=== PATIENT | female | born 1985 | race Caucasian/White ===

== ENCOUNTER 2016-12-14 17:18 | Inpatient (IN) | payer OTHER ==
[~2016-12-14] VITALS: Ht 162.6 cm; Wt 87.1 kg
[~2016-12-14 17:18] MED LIST: ESOM40CA41 PO; LEVO1TAB20 PO; Methylergonovine 0.2 mg/mL Inj ONE
[2016-12-14] MEDS ORDERED: Lactated Ringer's 1,000 ML IV PRN (19:02)
[2016-12-14] MEDS ORDERED: Oxytocin 30 Units/500 mL LR 30 UNITS in IV Premix 1 EACH IV PRN (19:05)
[2016-12-14] MEDS ORDERED: Sodium Chloride LOK Flush 10 mL Syringe IVFLUSH PRN (19:05)
[2016-12-14] MEDS ORDERED: Oxytocin 10 Unit/mL Inj IM PRN (19:05)
[2016-12-14] MEDS ORDERED: Methylergonovine 0.2 mg/mL Inj IM PRN (19:05)
[2016-12-14] MEDS ORDERED: Carboprost 250 mCg/mL Inj IM PRN (19:05)
[2016-12-14] MEDS ORDERED: Hemorrhage Kit, Post Partum XX ONE (19:05)
[2016-12-14] MEDS ORDERED: Oxytocin 30 Units/500 mL LR Premix IV ONE (19:11)
[2016-12-14] MEDS ORDERED: Lactated Ringer's 500 ML IV ONE (19:17)
[2016-12-14] MEDS: Lactated Ringer's 1,000 ML IV SCH (19:17)
[2016-12-14] MEDS ORDERED: EPHEDrine Sulfate 50 mg/mL Inj IVPUSH PRN (19:20)
[2016-12-14] MEDS ORDERED: fentaNYL 2 mCg/mL-Bupiv 0.125% 100 ML EPIDURAL SCH (19:20)
[2016-12-14] MEDS ORDERED: Atropine 1 mg/10 mL (Code) Syringe IVPUSH PRN (19:20)
[2016-12-14 19:53] LABS: Mean Corpuscular Hemoglobin 30.6 pg (27.0-35.0); Mean Corpuscular Volume 89.4 fL (81-100)
--- NOTE | 2016-12-14 20:37 | PCM.HPANE ---
Patient Data Surgeon Admitting Provider:Patel Marks MD Attending Provider:Patel Marks MD Primary Care Physician:Nopcp Other Provider: Reason for Visit Term Labor Check TERM LABOR CHECK Ht/WT & BMI Body Mass Index Allergies Coded Allergies: No Known Allergies (Verified Allergy, Unknown, 11/24/14) Past Anesthesia History Anesthesia History: Denies:: Abnormal Airway, Anesthesia Reactions, Difficult Intubation, Fam Anesthesia Reaction, Fam Malignant Hypertherm, Malignant Hyperthermia Diabetes History Hx Diabetes?: No MRSA MRSA: No Medications Reported Medications Esomeprazole Magnesium (Nexium)40 Mg Capsule.dr40 Mg PO DAILY 30 Days Ref 0 11/25/14 Levonorgestrel/Ethinyl Estradiol (Sronyx)1 Each Tablet1 Each PO 11/25/14 History History of ENT Problems?: No HEENT History: Denies:: Abnormal Airway Cataracts Difficult Intubation Dysphagia Glaucoma Hearing Problem Sinus Problem TMJ Denture Type: None Teeth Condition: Within Normal Limits Hx of Heart Problems?: No Cardiovascular History: Denies:: AICD Abdominal Aortic Aneurism Atrial Fibrillation Cardiac Surgery Chest Pain Congestive Heart Failure Coronary Artery Disease Edema Heart Murmur Hypertension Irregular Heartbeat Pacemaker Peripheral Vascular Rheumatic Fever Thrombophlebitis Valvular Heart Disease Hx of Respiratory Problem?: No Respiratory History: Denies:: Asthma COPD Chest Surgery Cough Dyspnea Emphysema Hemoptysis Oxygen Administration Pneumonia Pulmonary Embolism Tuberculosis Use of C-PAP Machine Use of Inhalers / NEBS Hx Neurologic Problems?: No Neurological History: Denies:: Alzheimer's Disease CVA Dementia Dizziness Headaches Multiple Sclerosis Parkinson's Disease Peripheral Neuropathy Seizures TIA Hx of GI Problems?: No Gastrointestinal History: Denies:: Cirrhosis Diverticulitis Gall Bladder Disease Gastroesphageal Reflux Gastrointestinal Bleeding Heartburn Hepatitis Hiatal Hernia Liver Disease Rectal Bleeding Hx of Problems?: No Genitourinary History: Denies:: HX of Hemodialysis Kidney Stones Urinary Tract Infection HX of Peritoneal Dialysis: No Female Hx: Positive for:: Currently Denies:: Endometriosis Pelvic Inflammatory Problems with Breasts? Skin History: Denies:: History Skin Disorders? Pressure Ulcers Hx Musculoskeletal Problems?: No Musculoskeletal History: Denies:: Back Injury Degenerative Joint Fibromyalgia Joint Replacement Musculoskeletal Trauma Myasthenia Gravis Osteoarthritis Rheumatoid Arthritis Systemic Lupus Hx of Psycho/Social Problems?: No Psycho Social History: Denies:: Anxiety Bipolar Disorder Hx Depression Suicide Attempt Hx Surgeries?: Yes (CHILDBIRTH) Hx Any Other Health Problems?: No Other History: Denies:: Cancer Endocrine Disease Hospitalization Thyroid Disease History Blood Transfusions: Denies:: Accept Blood Products? Blood Transfuse Reaction Blood Transfusions Hx Diabetes: No Hx Alcohol Use: No Smoking Status: Former Smoker Stop/Bang Risk Assessment Category Category 1A: Patient has history of documented sleep apnea, and HAS NOT received any narcotic, sedative or anesthesia administration during this stay. Category 1B: Patient has history of documented sleep apnea, and HAS received any narcotic , sedative or anesthesia administration during this stay Category 2: Patient has SUSPECTED Obstructive Sleep Apnea, and HAS received any narcotic , sedative or anesthesia administration during this stay. Category 3: Patient has SUSPECTED Obstructive Sleep Apnea and HAS NOT received narcotic, sedative or anesthesia administration during this stay. Category 4: Outpatient in Procedural Areas with known sleep apnea or who screen positive for High Risk via the STOP/BANG questionnaire. Exam Exam General Appearance: Alert, Oriented X3, Cooperative, Severe Distress HEENT/AIRWAY: MP 2, Neck Movement (FROM), Mouth Opening (3 FBMO) Lungs: Normal Air Movement Heart: Regular Rate/Rhythm Plan Impression Patient chart reviewed, patient interviewed and anesthestic plan with risks, benefits, and alternatives discussed, and informed consent obtained. ASA Physical Status: ASA1 Normal Healthy Anesthetic Plan: Epidural Bene/Risks/Altern/Consents: Yes HP Complete Prior to Induction: Yes Chaparro Thurston MD December 14, 2016 19:17
--- NOTE | 2016-12-14 20:38 | PCM.PNOBIP ---
Subjective Date of Service December 14, 2016 Delivery plan: Vaginal Delivery after Ceserean Visit History 31 y/o -0-0-1 at 39 weeks gestation with a history of a previous delivery for arrest of descent. Presented to [facility] in early labor at 3cm/85/-1 station. Subjective Patient now has epidural and is resting comfortably. She has no complaints. Pain Management: Epidural Group B Strep Results: Negative Rubella: Immune RH Type: Positive Labs Laboratory Tests 12/14/16 19:30: White Blood Count 20.8, Red Blood Count 4.83, Hemoglobin 14.8, Hematocrit 43.2, Mean Corpuscular Volume 89.4, Mean Corpuscular Hemoglobin 30.6, Mean Corpuscular Hemoglobin Concent 34.3, Red Cell Distribution Width 13.4, Platelet Count 260 Exam Vital Signs Vital Signs Contraction frequency in minutes: MVUs: Vital Signs: VS reviewed, stable Heart Tracings Heart Tones Baseline bpm Heart Rate Variability: Moderate Heart Rate Accelleration: Present Heart Rate Deceleration: Present Heart Rate Category: I Tocometry/IUPC Contraction frequency in minutes: 3 to 4 minutes Sterile Vaginal Exam Cervical Dilation: 6 cms Cervical Effacement: 90 % Station: -2 OB Intrapartum Assessment/Plan Problems: (1) 39 weeks gestation of Status: Acute ICD Code: Z3A.39 (2) Desires (vaginal after ) trial Plan: AROM clear Continue expectant management. Status: Acute ICD Code: O34.219 Intrapartum plan: Continue expected management Pain Evaluation: Adequate Pain Control Patel Marks MD December 14, 2016 20:38
[2016-12-15] VITALS (7 sets, daily range): BP systolic 117–137; BP diastolic 76–87; PULSE 85–140; RESP 14–17; O2SAT 98–99
[2016-12-15 00:30] LABS: Mean Corpuscular Volume 91.3 fL (81-100)
[2016-12-15] MEDS ORDERED: LACTATED RINGER S IV PRN (00:35)
[2016-12-15] MEDS ORDERED: OXYTOCIN IV PRN (00:35)
[2016-12-15] MEDS ORDERED: Carboprost 250 mCg/mL Inj IM PRN ×2 (00:35→01:35)
[2016-12-15 01:00] LABS: Mean Corpuscular Volume 92.3 fL (81-100)
[2016-12-15 01:15] LABS: INR 0.95 ratio
[2016-12-15] MEDS ORDERED: Lactated Ringer's 1,000 ML IV SCH ×2 (01:31→01:42)
[2016-12-15] MEDS ORDERED: Acetaminophen IV 1,000 MG in IV Premix 1 EACH IV PRN (01:35)
[2016-12-15] MEDS ORDERED: diphenhydrAMINE 50 mg Capsule PO PRN (01:35)
[2016-12-15] MEDS ORDERED: Oxytocin 30 Units/500 mL LR 30 UNITS in IV Premix 1 EACH IV PRN (01:35)
[2016-12-15] MEDS ORDERED: Oxytocin 10 Unit/mL Inj IM PRN (01:35)
[2016-12-15] MEDS ORDERED: Hemorrhage Kit, Post Partum XX ONE (01:35)
[2016-12-15] MEDS ORDERED: Methylergonovine 0.2 mg/mL Inj IM PRN (01:35)
[2016-12-15] MEDS ORDERED: Sodium Chloride LOK Flush 10 mL Syringe IVFLUSH PRN (01:35)
[2016-12-15] MEDS ORDERED: hydrOXYzine Pamoate 25 mg Capsule PO PRN (01:35)
[2016-12-15] MEDS ORDERED: LANOlin HPA 7 Gm Ointment TOPICAL PRN ×2 (01:35→12:15)
[2016-12-15] MEDS ORDERED: Lactated Ringer's 500 ML IV PRN (01:42)
[2016-12-15] MEDS ORDERED: MetoCLOpramide 5 mg/mL 2 mL Inj IVPUSH PRN (01:45)
[2016-12-15] MEDS ORDERED: Atropine 0.4 mg/mL Inj IVPUSH PRN (01:45)
[2016-12-15] MEDS ORDERED: fentaNYL-PF 50 mCg/mL 2 mL Inj IVPUSH PRN (01:45)
[2016-12-15] MEDS ORDERED: Phenylephrine 10,000 mCg/mL Inj IVPUSH PRN (01:45)
[2016-12-15] MEDS ORDERED: HYDROmorphone 1 mg/mL Inj IVPUSH PRN (01:45)
[2016-12-15] MEDS ORDERED: Labetalol 5 mg/mL 4 mL Inj IV PRN (01:45)
[2016-12-15] MEDS ORDERED: Ondansetron 2 mg/mL 2 mL Inj IVPUSH PRN (01:45)
[2016-12-15] MEDS ORDERED: EPHEDrine Sulfate 50 mg/mL Inj IVPUSH PRN (01:45)
--- NOTE | 2016-12-15 01:52 | PCM.SURGOP ---
Surgical Operative Report Date of Service: December 14, 2016 Pre Operative Diagnosis 1. Previous delivery desires 2. 39 weeks gestation 3. Hemorrhage with uterine inversion Post Operative Diagnosis 1. Previous Delivery 2. hemorrhage due to uterine inversion 3. 39 weeks gestation Procedure: Exam under anesthesia and manual version of uterus. Repair of second degree perineal laceration. Surgeon and Medical Dir: Surgeon: Patel Marks MD Assistants: None Indication for Procedure Is a 31-year-old 2 now para 2 who is status post a successful followed by a hemorrhage due to uterine inversion. Findings: Exam under anesthesia showed an anteverted uterus. Was also some remaining amniotic membranes. Procedure Details The patient was taken back to the operating room at 00:24 on 12/15/2016 due to a massive hemorrhage and uterine inversion. Did not tolerate an attempt at the bedside to manually invert the uterus to its normal position. The massive hemorrhage protocol was activated. General anesthesia was obtained without difficulty. The patient was placed in a lithotomy position in the white stirrups. Once the patient was under general anesthesia a hand was placed in the vagina into the uterus and the inverted uterus was inverted back to its normal position using the surgeon's hands. Uterine massage was then performed and uterus was firm to palpation.This resolved the patient's bleeding. A small piece of amniotic membranes that were removed with ring forcep. On inspection of the vagina and perineum the perineal repair that was done at the bedside was . Those sutures were removed and the second- degree perineal laceration was repaired with 0 Vicryl in a standard fashion. Stasis was assured at the end of the procedure. The patient received 800 g of is apostle per rectum in addition to 30 units of Pitocin IV. Fundus was firm at the end of procedure. Complications There were no periprocedural complications identified. Surgical Specimen Removed: No Specimen sent to Pathology: No Anesthetic Plan: GA, Epidural Grafts, Implants: None Output, Estimated Blood Loss: 2000 Blood Administration during mcpherson: No Catheters: Urethral 2 Way Zazueta Post Operative Plan Patient will recover in the PACU in stable will return to the [facility] for her care. Patel Marks MD December 15, 2016 01:52
--- NOTE | 2016-12-15 02:07 | PCM.OBVAG ---
Vaginal Delivery Date of Service December 15, 2016 Pre Operative Diagnosis Pre Operative Diagnosis 1. Previous delivery and patient desires a trial labor after . 2. hemorrhage 3. 39 weeks gestation Post Operative Diagnosis Post Operative Diagnosis 1. Previous delivery and patient desires a trial labor after . 2. hemorrhage 3. 39 weeks gestation 4. Uterine inversion Procedure Obstetical Procedure: Repair of Perineal Tear (2nd degree), Other () Designated Broker/Medical Office Assistant Instructor Provider and Medical Office Assistant Instructor: Patel Marks M.D. Indication for Procedure Indication for Procedure Patient is a 31-year-old 2 para 1 who has had a previous delivery and she desired a trial labor. She presents to the [facility] in early labor at 3 cm dilated and was admitted for active labor. Induction: Active labor, AROM Findings Obstetrical Findings: (Male), Cord (3 Vessel), Weight ( 7lbs 2oz), Presentation (Vertex), 1 minute (8), 5 minutes (9), Placenta ( Intact/Normal), Perineal Laceration (2nd degree) Analgesia/Medications Obstetrical Anesthesia: Epidural Procedure Details Procedure Details The patient progressed through labor normally. She was completely dilated at 21 :31hrs on 12/14/2016. She was allowed to labor down for one hour. The infant delivered at 23:40hrs in a cephalic presentation. There was a tight nuchal cord that was not reduced and delivered with maternal effort. The placenta was delivered intact at 00:00hrs on 12/15/2016. On inspection of the vagina and perineum there was a second degree perineal laceration that was repaired in the standard fashion with Vicryl suture. The patient then subsequently had a massive amount of bleeding and clots and symptoms of nausea and vomiting with hypertension and tachycardia. The massive hemorrhage protocol was activated . She received a dose of Hemabate at bedside. On exam it was felt that she had an inverted uterus versus uterine rupture. She did not tolerate an extensive exam at the bedside even though she had an epidural. At that time she was consented for an exam under anesthesia and possible laparotomy and hysterectomy. She was moved to the OR at 00:24 where she received general anesthesia. An exam was more easily performed and the uterus was inverted. It took some effort to replace the uterus in its normal position. Once the uterus was replaced patient's bleeding stopped. She was given 800 g of Cytotec rectally and her IV Pitocin was continued. She was then awakened and taken to her room in good condition. Specimen Specimens: Placenta Blood Loss & Administration Blood Admin during procedure: No Post Procedure Plan Post Procedure Plan Patient was showing signs of severe blood loss and was taken to the operating room for exam. See separate operative note for details. Patel Marks MD December 15, 2016 02:07
--- NOTE | 2016-12-15 02:07 | PCM.ANEP1 ---
Post Anesthesia Phase 1 PACU Phase 1 Assessment Date of Service: December 14, 2016 Vital Signs Vital Signs Date Time Temp Pulse Resp B/P Pulse Ox O2 Delivery O2 Flow Rate FiO2 12/15/16 02:00 90 15 130/79 98 Simple Mask 8 12/15/16 01:53 100 16 127/87 99 Simple Mask 8 12/15/16 01:49 36.5 99 17 117/81 99 Simple Mask 8 12/15/16 01:40 140 15 120/85 99 Simple Mask 8 Anesthetic Administered: GA, Epidural Level of Alertness: Awake, talking GIL's with Equal Strength: Yes (epidural worn off, emergency GETA for hemorrhage) Pain: No Nausea or Vomiting: No Cardiovascular Function and Hy: No Oxygen Delivery: Room Air Lungs: Normal Air Movement Dermatome Level: Full Sensation Complications: No Follow up Care: No Comments After vaginal delivery the patient had a post hemorrhage and lost around a liter of blood. Taken emergently to the OR where she was intubated and Dr. Marks found an inverted uterus. Bleeding stopped and taken to the PACU. Chaparro Thurston MD December 15, 2016 02:07
[2016-12-15] MEDS ORDERED: OXYTOCIN IV ONE (02:18)
[2016-12-15] MEDS ORDERED: LACTATED RINGER S IV ONE (02:18)
[2016-12-15] MEDS ORDERED: LR IV ONE (02:18)
[2016-12-15] MEDS ORDERED: Lactated Ringer's 1,000 ML IV ONE (02:23)
--- NOTE | 2016-12-15 02:40 | HP ---
[address] [address] HISTORY AND PHYSICAL PATIENT: ANIVAL ORDONEZ : 1985 MR#: [id number] ADMIT: 12/14/2016 JOB ID: [id number] CHIEF COMPLAINT: Contractions. HISTORY OF PRESENT ILLNESS: The patient is a 31-year-old, 2, para 1-0-0-1, at 39 weeks and 1 day gestation with a history of a previous delivery, who desires a trial of labor after . Her estimated due date is December 20, 2016. This is based on her last menstrual period of March 15, 2016. She presented to the [facility] this evening with complaints of losing her mucous plug and strong frequent contractions. She denies any vaginal bleeding or leakage of fluid. She was monitored in triage for 2 hours, and changed from 2 cm to 3 cm. She was 3, 85% effaced, -1 station, vertex. She has group B strep negative. LABORATORIES: She is O positive. Antibody screen was negative. Varicella immune. Rubella immune. A diabetes screen was 92. She had a negative quad screen. Hepatitis C antibody negative. HIV, the patient declined. Hepatitis B surface antigen was negative. PAST MEDICAL HISTORY: No significant past medical history. PAST OBSTETRICAL HISTORY: She has had one previous delivery for failure to progress. The patient reports that she was completely dilated, pushed for 2 hours, and the decision was made to proceed with primary delivery. 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 PAST SURGICAL HISTORY: 1. Orange teeth. 2. , October 2011. SOCIAL HISTORY: She does have a history of cigarette use but not currently. No history of any drug, alcohol or illicit drug use. ALLERGIES: COCONUT. MEDICATIONS: vitamins. PHYSICAL EXAMINATION: Vital signs reviewed and stable. heart tones category 1, duane every 3-4 minutes. The patient appears uncomfortable. Generally alert and oriented. Cardiovascular exam unremarkable. Lungs clear to auscultation. Abdomen is gravid. Pelvic exam: 3 cm dilated, 85% effaced, -1 station, vertex. ASSESSMENT: A 39 week gestation with previous delivery, desires trial of labor. PLAN: Expectant management. Anticipate vaginal delivery. Will allow the patient to have epidural when desires. Will plan to have artificial rupture of membranes once the patient has her epidural.
[2016-12-15] MEDS: Lactated Ringer's 1,000 ML IV SCH ×2 (02:51→08:19)
[2016-12-15 02:59] LABS: Mean Corpuscular Hemoglobin 30.9 pg (27.0-35.0); Mean Corpuscular Volume 91.6 fL (81-100)
[2016-12-15 03:15] LABS: INR 0.96 ratio
[2016-12-15] MEDS ORDERED: Ondansetron 2 mg/mL 2 mL Inj ONE (06:22)
[2016-12-15] MEDS ORDERED: MetoCLOpramide 5 mg/mL 2 mL Inj ONE (06:22)
[2016-12-15] MEDS ORDERED: Dexamethasone 4 mg/mL Inj ONE (06:22)
[2016-12-15] MEDS ORDERED: fentaNYL-PF 50 mCg/mL 2 mL Inj ONE (06:22)
[2016-12-15] MEDS ORDERED: Oxytocin 10 Unit/mL Inj ONE (06:22)
[2016-12-15 07:17] LABS: BASOPHILS % (AUTO) 0.1 % (0-3); EOSINOPHILS % (AUTO) 0 % (0-5); MONOCYTES % (AUTO) 5.7 % (4-12); Mean Corpuscular Hemoglobin 31.3 pg (27.0-35.0); Mean Corpuscular Volume 91.5 fL (81-100); NEUTROPHILS % (AUTO) 88.3 % (40-74); Platelet Count 194 bil/L (150-400)
[2016-12-15] MEDS ORDERED: Ascorbic Acid 500 mg Tablet PO SCH (08:00)
--- NOTE | 2016-12-15 08:17 | PCM.PNOBPP ---
Subjective Date of Service December 15, 2016 Post : Vaginal Delivery after Ceserean (, PPH and reduction of inverted uterus. ) Lochia: Normal Gastrointestinal: Good Appetite, No N/V, Normal Bowel Movement Postop Activity: Ambulating in Room Only Group B Strep Results: Negative Rubella: Immune RH Type: Positive Labs Laboratory Tests 12/15/16 06:45: Laboratory Tests 72 Hours Test 12/14/16 19:30 12/15/16 00:28 12/15/16 00:52 12/15/16 01:06 White Blood Count 20.8th/mm3 (3.8-10.1) 17.9th/mm3 (3.8-10.1) 55.0th/mm3 (3.8-10.1) Red Blood Count 4.83mil/mm3 (3.90-5.20) 3.90mil/mm3 (3.90-5.20) 3.64mil/mm3 (3.90-5.20) Hemoglobin 14.8g/dL (12.0-15.6) 12.1g/dL (12.0-15.6) 11.3g/dL (12.0-15.6) Hematocrit 43.2% (35.0-46.0) 35.6% (35.0-46.0) 33.6% (35.0-46.0) Mean Corpuscular Volume 89.4fL (81-100) 91.3fL (81-100) 92.3fL (81-100) Mean Corpuscular Hemoglobin 30.6pg (27.0-35.0) 31.0pg (27.0-35.0) 31.0pg (27.0-35.0) Mean Corpuscular Hemoglobin Concent 34.3% (32.0-37.0) 34.0% (32.0-37.0) 33.6% (32.0-37.0) Red Cell Distribution Width 13.4% (12.3-15.4) 13.3% (12.3-15.4) 13.3% (12.3-15.4) Platelet Count 260bil/L (150-400) 297bil/L (150-400) 327bil/L (150-400) Prothrombin Time 10.2sec (8.1-12.5) Prothromb Time International Ratio 0.95ratio Activated Partial Thromboplast Time 27.1sec (22.8-33.0) Fibrinogen 306mg/dL (157-380) Hold Lu Top Tube Received (Received) Test 12/15/16 02:45 12/15/16 06:45 12/15/16 11:10 White Blood Count 41.3th/mm3 (3.8-10.1) 34.4th/mm3 (3.8-10.1) 32.6th/mm3 (3.8-10.1) Red Blood Count 3.20mil/mm3 (3.90-5.20) 2.59mil/mm3 (3.90-5.20) 2.65mil/mm3 (3.90-5.20) Hemoglobin 9.9g/dL (12.0-15.6) 8.1g/dL (12.0-15.6) 8.3g/dL (12.0-15.6) Hematocrit 29.3% (35.0-46.0) 23.7% (35.0-46.0) 24.4% (35.0-46.0) Mean Corpuscular Volume 91.6fL (81-100) 91.5fL (81-100) 92.1fL (81-100) Mean Corpuscular Hemoglobin 30.9pg (27.0-35.0) 31.3pg (27.0-35.0) 31.3pg (27.0-35.0) Mean Corpuscular Hemoglobin Concent 33.8% (32.0-37.0) 34.2% (32.0-37.0) 34.0% (32.0-37.0) Red Cell Distribution Width 13.1% (12.3-15.4) 12.9% (12.3-15.4) 12.9% (12.3-15.4) Platelet Count 209bil/L (150-400) 194bil/L (150-400) 214bil/L (150-400) Prothrombin Time 10.3sec (8.1-12.5) Prothromb Time International Ratio 0.96ratio Activated Partial Thromboplast Time 27.1sec (22.8-33.0) Neutrophils (%) (Auto) 88.3% (40-74) 84.5% (40-74) Lymphocytes (%) (Auto) 4.8% (14-46) 7.5% (14-46) Monocytes (%) (Auto) 5.7% (4-12) 7.0% (4-12) Eosinophils (%) (Auto) 0% (0-5) 0% (0-5) Basophils (%) (Auto) 0.1% (0-3) 0.1% (0-3) Sodium Level 138mEq/L (134-144) Potassium Level 4.6mEq/L (3.5-5.2) Chloride Level 104mEq/L (97-108) Carbon Dioxide Level 16mmol/L (18-29) Blood Urea Nitrogen 10mg/dL (6-20) Creatinine 0.56mg/dL (0.57-1.00) Estimat Glomerular Filtration Rate 183mL/min (>59) Glucose Level 136mg/dL (60-99) Calcium Level 8.0mg/dL (8.5-10.1) Total Bilirubin 0.2mg/dL (0.0-1.2) Aspartate Amino Transf (AST/SGOT) 26U/L (0-50) Alanine Aminotransferase (ALT/SGPT) 8U/L (0-32) Alkaline Phosphatase 102U/L (25-150) Total Protein 4.0g/dL (6.4-8.4) Albumin 1.9g/dL (3.4-5.0) Exam Vital Signs Vital Signs Vital Signs Date Time Temp Pulse Resp B/P Pulse Ox O2 Delivery O2 Flow Rate FiO2 12/15/16 02:24 37.4 85 15 132/85 98 OxyMask 4 12/15/16 02:10 96 14 137/86 99 OxyMask 6 12/15/16 02:07 Room Air 12/15/16 02:04 90 17 136/76 99 Simple Mask 8 12/15/16 02:00 90 15 130/79 98 Simple Mask 8 12/15/16 01:53 100 16 127/87 99 Simple Mask 8 12/15/16 01:49 36.5 99 17 117/81 99 Simple Mask 8 12/15/16 01:40 140 15 120/85 99 Simple Mask 8 Vital Signs: VS reviewed, concerns are (sitting BP 123/72 and HR 96 , standing BP 121/70 and HR 131. ) Exam Abdomen: Fundus firm Lungs: Clear to Auscultation Heart: Regular Rate/Rhythm, Normal S1, Normal S2 General: Alert, Oriented X3 Additional Information Fluid In-Out= 800-800=0 OB Post Assessment/Plan Assessment 31 Y S/P successful . uterine inversion reduction. PPH , resolved, EBL 2000 ml. Symptomatic Anemia , Hgb 8.1-8.3 stable but with postural tachycardia , HR 96 sitting and 131 standing. R/B/A of blood transfusion were discussed with patient in details, risks includes and not limited to risk of infection, transfusion reaction , fluid over load and developing new antibodies. Patient desires blood transfusion. Informed consent was obtained. Will transfuse 2 Units of PRBC. Problems: (1) 39 weeks gestation of Status: Acute ICD Code: Z3A.39 (2) Desires (vaginal after ) trial Status: Acute ICD Code: O34.219 Pain Evaluation: Adequate Pain Control Yomi Cat MD December 15, 2016 08:17
[2016-12-15] MEDS ORDERED: oxyCODONE-Acetamin 5-325 mg Tablet PO PRN (09:15)
[2016-12-15 11:31] LABS: BASOPHILS % (AUTO) 0.1 % (0-3); EOSINOPHILS % (AUTO) 0 % (0-5); Mean Corpuscular Hemoglobin 31.3 pg (27.0-35.0); Mean Corpuscular Volume 92.1 fL (81-100); NEUTROPHILS % (AUTO) 84.5 % (40-74); Platelet Count 214 bil/L (150-400)
[2016-12-15] MEDS ORDERED: 0.9% Sodium Chloride 250 ML IV SCH (12:10)
[2016-12-15] MEDS ORDERED: Furosemide 10 mg/mL 2 mL Inj IV ONE (12:10)
[2016-12-15] MEDS ORDERED: diphenhydrAMINE 25 mg Capsule PO ONE (12:10)
[2016-12-15] MEDS ORDERED: Witch Hazel-Glycerin Pads TOPICAL PRN (12:15)
[2016-12-15] MEDS ORDERED: Benzocaine (Dermoplast) 20% 60 Gm Spray TOPICAL PRN (12:15)
[2016-12-15 19:30] LABS: BASOPHILS % (AUTO) 0.2 % (0-3); EOSINOPHILS % (AUTO) 0.2 % (0-5); MONOCYTES % (AUTO) 8.2 % (4-12); Mean Corpuscular Hemoglobin 30.7 pg (27.0-35.0); Mean Corpuscular Volume 90.4 fL (81-100); NEUTROPHILS % (AUTO) 76.4 % (40-74); Platelet Count 178 bil/L (150-400)
[2016-12-16 06:56] LABS: BASOPHILS % (AUTO) 0.3 % (0-3); MONOCYTES % (AUTO) 8.3 % (4-12); Mean Corpuscular Hemoglobin 30.7 pg (27.0-35.0); Mean Corpuscular Volume 90.7 fL (81-100); NEUTROPHILS % (AUTO) 73.1 % (40-74); Platelet Count 175 bil/L (150-400)
--- NOTE | 2016-12-16 08:58 | PCM.DIOB ---
Obstetrical Disch Instruction Date of Service: December 16, 2016 Dates of Hospitalization Date of Hospital Admission December 14, 2016 at 18:51 Providers Admitting Physician: Patel Marks MD Primary Care Physician: Miya Attending Physician: Patel Marks MD Discharge Diagnosis Discharge Diagnosis uterine inversion PPH with blood transfusion Post Operative diagnosis 1. Previous Delivery 2. hemorrhage due to uterine inversion 3. 39 weeks gestation Problems: (1) 39 weeks gestation of Status: Acute ICD Code: Z3A.39 (2) Desires (vaginal after ) trial Status: Acute ICD Code: O34.219 Diet Discharge Diet: No restrictions Activity Discharge Activity-General: Pelvic Rest for 6 weeks, Try not to overdue, Be up and about, Balance rest and activity, No lifting >15 pounds for 2 weeks Dressing and Incisional Care Hygiene: May shower, NO bathtub, hot tub or whirlpool Additional Instructions Discharge Instructions please take medication as we discussed Please call office if heavy vaginal bleeding, severe abdominal pain, foul smelling discharge , fever more than 100.4 or short of breath Follow Up Plan Follow Up Plan 6 weeks Follow-up appointment: Weeks (6) Call your provider for: Fever or Chills, Shortness of breath, Heavy vaginal bleeding, Excessive constipation, Vaginal discomfort, Red painful breasts Lila Masterson MD December 16, 2016 08:58
[2016-12-16] MEDS ORDERED: IBUP-1827 PO (09:00)
[2016-12-16] MEDS ORDERED: DOCU-41 PO (09:00)
[2016-12-16] MEDS ORDERED: FERR-74 PO (09:00)
--- NOTE | 2016-12-16 12:02 | DIS ---
[address] [address] DISCHARGE SUMMARY PATIENT: ANIVAL ORDONEZ : 1985 MR#: [id number] ADMIT: 12/14/2016 JOB ID: [id number] DIS: HISTORY OF PRESENT ILLNESS: This is a 31-year-old female. She is 2, para 2, s/p complicated with PPH with 2 units of PRBC transfusion and with an uterine inversion and surgical management. The patient doing well after the procedure. She tolerated her diet. She voided well. She is ambulating well. She is passing gas. PHYSICAL EXAMINATION: She is afebrile. Her pulse and her blood pressure is in normal range. Cardiac no murmur. Pulmonary bilaterally clear. Abdomen is soft, mildly distended, nontender. Uterus is well contracted. Extremities nontender. Lochia moderate to minimal. DIAGNOSTIC STUDIES: Labs: Her white count on December 15 at 2:45, her white count was 41.3 and it is gradually decreasing. Today it is 22.7. Her H and H yesterday in the evening was 10.2/30 and today is 9.9/29.2. Her platelet count was 175 which was also stable compared to yesterday in the evening. ASSESSMENT AND PLAN: A 31-year-old female, para 2, status post vaginal after () complicated with hemorrhage (PPH), blood transfusion, uterine inversion but patient is doing well now. We will plan to plan to discharge her home. She is going home with iron pills twice a day and Colace p.r.n. for constipation and Motrin also giving 30 pills for pain. The patient is instructed that if there is heavy vaginal bleeding, severe abdominal pain, foul-smelling discharge, fever more than 100.4, she will need to call office or go to the ED for evaluation. She is instructed to make appointment six weeks after delivery for followup. KAREN
--- NOTE | 2016-12-18 16:13 | PATH ---
SURGICAL PATHOLOGY Attending Physician:Patel Marks, CASE STATUS: Signed Out PATIENT NAME: ANIVAL ORDONEZ PID: [id number] : 1985 DATE COLLECTED:12/14/2016 00:00 SPECIMEN: Placenta CLINICAL HISTORY: 1. PLACENTA FINAL DIAGNOSIS: Narvaez Placenta: Placenta parenchyma: Weight 458 g. Chorionic villus maturation is consistent with mature placenta. Moderate inter and intravillous fibrin is present. No villitis identified. Two fibrous nodules are present (1.5 and 2.0 cm in greatest dimension) and involve less than 1% of the placental disc volume. Umbilical Cord: Length 17.8 cm. Peripherally attached 2.6 cm from the placental disc edge. Three vessels present. Focal, very mild funisitis is present. Membranes: Meconium staining present. No chorioamnionitis identified. ICD10: N85.5 GROSS DESCRIPTION: The specimen is received in formalin, labeled with the patient's name and consists of an intact placenta and includes placental disc (458 g, 16.8 x 15.8 x 3.6 cm), umbilical cord (length-17.8 cm, diameter-1.5 x 1.2 cm) and a scant amount of membranes attached to the base of the umbilical cord. The remaining membranes are absent. The membranes are semi-translucent. The umbilical cord is attached 2.6 cm from the edge of the placenta and contains 3 vessels. The surface is smooth and shiny with no evidence of meconium. The maternal surface is dark maroon with normal cotyledon formation. The placental disc is spongy and contains 2 yellow-orange rubbery fibrous nodules (2.0 x 1.2 x 0.6 cm and 1.5 x 1.2 x 0.8 cm) involving less than 1% of the disc. No hematomas, other nodules, masses, or lesions are identified. Section code: (A, B) membranes, umbilical cord; (C-D, E-G) placenta, 4 full thickness sections. 12/17/16 ICD-9 CODES: CPT CODES: 1: 31735 Electronically Signed Out Charleen Godoy MD [facility]ology [facility], [place] [address] Technical component performed at [facility], [address], [address]
== END 2016-12-16 11:38 | disposition home or self-care (01) | DRG 774 ==
LOC: FBCO 17:18 → FBC 18:51
PROVIDERS: ADMIT Obstetrics & Gynecology; ATTEND Obstetrics & Gynecology
PROC: 10E0XZZ Delivery of Products of Conception, External Approach (ICD-10-PCS; principal; 2016-12-14)
PROC: 0KQM0ZZ Repair Perineum Muscle, Open Approach (ICD-10-PCS; 2016-12-14)
PROC: 30233N1 Transfusion of Nonautologous Red Blood Cells into Peripheral Vein, Percutaneous Approach (ICD-10-PCS; 2016-12-14)
DX: O71.2 Postpartum inversion of uterus (principal); O72.2 Delayed and secondary postpartum hemorrhage; Z37.0 Single live birth; O34.219 Maternal care for unspecified type scar from previous cesarean delivery; Z3A.39 39 weeks gestation of pregnancy; O70.1 Second degree perineal laceration during delivery; O69.1XX0 Labor and delivery complicated by cord around neck, with compression, not applicable or unspecified